=== PATIENT | male | born 2000 | race Caucasian/White ===

== ENCOUNTER 2022-11-19 17:40 | Inpatient (IN) | payer OTHER ==
[~2022-11-19] VITALS: Ht 172.7 cm; Wt 57.1 kg
[2022-11-19] VITALS (87 sets, daily range): BP systolic 121; BP diastolic 65; PULSE 77; TEMP 97.9; O2SAT 90–100
[2022-11-19 18:32] LABS: BASO # 0.1 K/mm3 (0.0-0.2); BASO % 0.5 % (0.0-2.0); EOS % 0.1 % (0.0-4.0); GRAN # 13.6 K/mm3 (1.4-6.5); GRAN % 87.4 % (42.2-75.2); HEMATOCRIT 42.6 % (42.0-52.0); HEMOGLOBIN 14.8 g/dl (13.5-18.0); LYMPH # 1.2 K/mm3 (1.2-3.4); MEAN CELL VOLUME 92 fl (80.0-100.0); MEAN CORPUSCULAR HEMOGLOBIN 32 pg (27-31); MEAN CORPUSCULAR HGB CONC 35 g/dl (33.0-37.0); MEAN PLATELET VOLUME 9.1 fl (7.4-10.4); MONO # 0.5 K/mm3 (0.1-0.6); MONO % 3.4 % (1.7-9.3); PLATELET COUNT 283 K/mm3 (130-400); RED BLOOD COUNT 4.63 M/mm3 (4.20-5.60); REDCELL DISTRIBUTION WIDTH-CV 11.9 % (11.5-14.5)
[2022-11-19 18:48] LABS: ALBUMIN 4.8 gm/dL (3.5-5.0); BILIRUBIN,TOTAL 0.6 mg/dL (0.2-1.2); C-REACTIVE PROTEIN 0.02 mg/dL (0.00-0.50); CALCIUM 9.2 mg/dL (8.4-10.2); CREATININE, serum 0.9 mg/dL (0.72-1.25); POTASSIUM 3.4 mmol/L (3.5-4.5); TOTAL PROTEIN 7.4 gm/dL (6.2-8.1)
[2022-11-19 19:29] LABS: COLLECTION METHOD CLEAN CATCH
[2022-11-19 19:41] LABS: URINE APPEARANCE Clear (CLEAR/HAZY); URINE COLOR Yellow (YELLOW)
[2022-11-19 19:42] LABS: SQUAMOUS EPITHELIAL None Seen /hpf (0-10); URINE BLOOD Negative (NEGATIVE); URINE GLUCOSE Negative (NEGATIVE); URINE KETONE 4+ (NEGATIVE); URINE NITRATE Negative (NEGATIVE); URINE PROTEIN(semi-quant) Negative (NEGATIVE); URINE RBC None Seen /hpf (0-2); URINE UROBILINOGEN 0.2 E.U/dL (0.2-1.0)
[2022-11-19 19:43] LABS: URINE BACTERIA None Seen /hpf (NONE SEEN)
[2022-11-19 19:45] LABS: TRICYCLIC ANTIDEPRESS URINE NEGATIVE
[2022-11-19 21:49] LABS: ACETONE,SERUM SMALL
[2022-11-19 21:58] LABS: ANION GAP 14 mmol/L (7-16); BLOOD UREA NITROGEN 12 mg/dL (9-21); CALCIUM 8.3 mg/dL (8.4-10.2); CHLORIDE 112 mmol/L (98-107); GLUCOSE 109 mg/dL (70-99); MAGNESIUM 1.6 mg/dL (1.6-2.6); PHOSPHOROUS 2.9 mg/dL (2.3-4.7); SODIUM 140 mmol/L (136-145)
--- NOTE | 2022-11-19 22:00 | NUR ---
PATIENT ARRIVED TO ICU VIA ED COT ACCOMPANIED BY RN. PATIENT NOT IN DISTRESS AND ABLE TO TRANSFER TO BED.
[2022-11-19 22:12] LABS: OSMOLALITY-SERUM 295 Osm/kg (275-300)
[2022-11-19 22:14] LABS: CARBON DIOXIDE 14 mmol/L (22-29); SALICYLATE < 5.0 mg/dL (15.0-30.0)
[2022-11-19] MEDS ORDERED: ASHWAGANDHA300 MG PO (22:22)
[2022-11-19] MEDS ORDERED: VITAMIN B12 781 TAB PO (22:35)
[2022-11-19] MEDS ORDERED: VITAMINC1000TA PO (22:36)
[2022-11-19] MEDS ORDERED: VITAMIN B-625 MG PO (22:36)
[2022-11-19] MEDS ORDERED: PROBIOTIC BLEN1 EACH PO (22:37)
[2022-11-19] MEDS ORDERED: OMEGA-3 1000 MG1 CAP PO (22:38)
[2022-11-19] MEDS ORDERED: THE MEDICINE SH1 POW PO (22:39)
[2022-11-19] MEDS ORDERED: LIONS MANE (22:39)
[2022-11-19] MEDS ORDERED: MELATONIN1 MG PO (22:40)
[2022-11-20] VITALS (790 sets, daily range): BP systolic 96–112; BP diastolic 54–89; PULSE 79–93; TEMP 97.9–98.5; O2SAT 94–100
--- NOTE | 2022-11-20 00:40 | NUR ---
PATIENT DOES NOT APPEAR TO BE IN ACUTE DISTRESS. RESPIRATORY EFFORT IS NORMAL AND PAIN IS MINIMAL. PATIENT STATED THAT HE HAS LOST 20 LBS SINCE JULY AND HAS CHANGED HIS DIET DUE TO GI UPSET. PATIENT ALSO MENTIONED THAT HE FREQUENTLY HAS BLOOD IN HIS STOOL, USES THC AND NICOTINE AND DRINKS A COUPLE TIMES A WEEK. LR INFUSING , MAGNESIUM DC'D DUE TO PAIN WITH INFUSION - DOCTOR'S ORDERS. BED IN LOW POSITION AND CALL LIGHT WITHIN REACH. PATIENT IN OBSERVABLE AREA.
[2022-11-20 01:46] LABS: CALCIUM 8.7 mg/dL (8.4-10.2); CREATININE, serum 0.79 mg/dL (0.72-1.25)
[2022-11-20 02:22] LABS: HIV 1/2 Antibodies Non-Reactive; HIV-1p24 Antigen Non-Reactive
[2022-11-20 04:45] LABS: BASO % 0.4 % (0.0-2.0); EOS # 0.1 K/mm3 (0.0-0.7); EOS % 0.8 % (0.0-4.0); GRAN # 4.6 K/mm3 (1.4-6.5); GRAN % 58.8 % (42.2-75.2); HEMATOCRIT 37.7 % (42.0-52.0); HEMOGLOBIN 13.2 g/dl (13.5-18.0); LYMPH # 2.3 K/mm3 (1.2-3.4); LYMPH % 29.4 % (20.0-51.0); MEAN CELL VOLUME 90 fl (80.0-100.0); MEAN CORPUSCULAR HEMOGLOBIN 31 pg (27-31); MEAN CORPUSCULAR HGB CONC 35 g/dl (33.0-37.0); MEAN PLATELET VOLUME 8.9 fl (7.4-10.4); MONO # 0.8 K/mm3 (0.1-0.6); MONO % 10.5 % (1.7-9.3); PLATELET COUNT 241 K/mm3 (130-400); RED BLOOD COUNT 4.21 M/mm3 (4.20-5.60); REDCELL DISTRIBUTION WIDTH-CV 11.9 % (11.5-14.5)
[2022-11-20 05:01] LABS: CALCIUM 9.2 mg/dL (8.4-10.2); CREATININE, serum 0.86 mg/dL (0.72-1.25); MAGNESIUM 2.1 mg/dL (1.6-2.6); PHOSPHOROUS 3.6 mg/dL (2.3-4.7); POTASSIUM 4.2 mmol/L (3.5-4.5)
--- NOTE | 2022-11-20 08:00 | NUR ---
PT RESTING IN BED WITH LIGHTS OFF AND EYES CLOSED. PT AWOKE TO SOUND OF DOOR, A&O X3, VSS, AND REPORTS PAIN 5/10 TO RFA BETWEEN WRIST AND ELBOW WITH NO VISIBLE CONCERN NOTED. ALL QUESTIONS ANSWERED AT THIS TIME AND CALL LIGHT REMAINS WITHIN REACH.
[2022-11-20 08:34] LABS: CALCIUM 8.7 mg/dL (8.4-10.2); CREATININE, serum 0.87 mg/dL (0.72-1.25); POTASSIUM 4.1 mmol/L (3.5-4.5)
--- NOTE | 2022-11-20 10:19 | NUR ---
IVF STOPPED AT THIS TIME AND MENU REVIEWED WITH EDUCATION OF ADVANCED DIET ORDERS. ALL QUESTIONS ANSWERED AT THIS TIME. PT DENIES ADDITIONAL NEEDS.
--- NOTE | 2022-11-20 11:08 | NUR ---
CUSTOMER SERVICE AGENT reviewed pt's clinical record and noted he was admitted last evening for generalized weakness. CUSTOMER SERVICE AGENT met with pt @ his bedside before rounds this morning. Pt was cooperative, oriented to person, time, place and situation. He reports he was lying on his couch and became very shaky, weak and cold, He reports he has never experience sxs like that before, prompting a visit to the ED. Pt reports he feels better this morning. 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 He is single, has no children and is originally from [place]. He stated his parents left their home in [place] at 3am this morning after he alerted them of his admission. Pt has no primary care provider, but states he has seen a nurse practitioner @ [facility]. When asked if he had a HCPOA, pt stated, "yes." He stated his parents are his HCPOA's. No other concerns noted. Pt most likely will be discharge later today. No SW needs were noted.
--- NOTE | 2022-11-20 11:12 | NUR ---
Initial visit: Human Resources Talent Manager stopped by room on rounds. Pt was resting and content sitting up in his bed. Pt has no needs right now. Human Resources Talent Manager will follow up as needed.
--- NOTE | 2022-11-20 12:00 | NUR ---
PARENTS ARRIVED AND REMAIN AT BEDSIDE. ALL QUESTIONS ANSWERED. VSS, CALL LIGHT WITHIN REACH, NO ADDITIONAL NEEDS VOICED AT THIS TIME.
--- NOTE | 2022-11-20 14:12 | NUR ---
REPORT GIVEN TO CARLOTA GAUTHIER ON MEDICAL FLOOR. ALL QUESTIONS ANSWERED. PT TRANSFERED VIA WC WITH PARENTS AT HIS SIDE TO ROOM 315. DISHA IN ROOM, CALL LIGHT WITHIN REACH, AND NO ADDITIONAL NEEDS VOICED AT THIS TIME.
--- NOTE | 2022-11-20 14:29 | NUR ---
Pt arrived to room 315 via w/c as an ICU transfer. Diagnosis metabolic acidosis. Assessment complete. Reports discomfort to IV site- no s/s IV related complications- and a sore throat. Just received Tylenol po from ICU nurse prior to transfer. Patient's parents at bedside.
--- NOTE | 2022-11-20 20:21 | NUR ---
Dr. Mendoza in this evening for consult. Patient given sitz bath, per MD order. Sitz bath set up in the bathroom and patient instructed on use-verbalizes understanding. Lidocaine gel at bedside for use after sitz bath.
--- NOTE | 2022-11-20 21:26 | NUR ---
patient ambulating in room, alert and oriented x4. RF IV is patent, clean dry and intact. pt using sitz bath as educated. pt denies chest pain and shortness of breath and has no further needs, questions, or concerns at this time. call light within reach, will continue to monitor.
[2022-11-21 03:30] VITALS: BP 96/57; PULSE 67; TEMP 98.3
[2022-11-21 07:26] VITALS: BP 105/63; PULSE 69; TEMP 97.9
[2022-11-21 07:27] LABS: BASO % 0.8 % (0.0-2.0); EOS # 0.1 K/mm3 (0.0-0.7); EOS % 2.6 % (0.0-4.0); GRAN # 2.1 K/mm3 (1.4-6.5); HEMATOCRIT 38.5 % (42.0-52.0); LYMPH # 2.2 K/mm3 (1.2-3.4); LYMPH % 44.8 % (20.0-51.0); MEAN CELL VOLUME 91 fl (80.0-100.0); MEAN CORPUSCULAR HEMOGLOBIN 31 pg (27-31); MEAN CORPUSCULAR HGB CONC 34 g/dl (33.0-37.0); MONO # 0.5 K/mm3 (0.1-0.6); MONO % 9.6 % (1.7-9.3); PLATELET COUNT 226 K/mm3 (130-400); RED BLOOD COUNT 4.22 M/mm3 (4.20-5.60); REDCELL DISTRIBUTION WIDTH-CV 12.2 % (11.5-14.5)
--- NOTE | 2022-11-21 07:45 | NUR ---
Assessment complete. Reports mild discomfort to rectal/hemorrhoid area but feels the lidocaine gel and sitz bath were effective.
[2022-11-21 08:13] LABS: CALCIUM 9.6 mg/dL (8.4-10.2); CREATININE, serum 0.93 mg/dL (0.72-1.25)
[2022-11-21] MEDS ORDERED: LEADER CLE17 GM/Dose PO (08:50)
--- NOTE | 2022-11-21 10:10 | NUR ---
Discharge instructions reveiwed with patient- verbalizes understanding. INT d/c'd with cath tip intact. Pt escorted to private vehicle and discharged home with family.
== END 2022-11-21 10:15 | disposition home or self-care (01) | DRG 641 ==
LOC: COL.ER 17:40 → ICU 20:22 → MEDICAL 20:22
PROVIDERS: Nurse Practitioner Primary Care; Physician Assistant; ADMIT Internal Medicine
DX: E87.29 Other acidosis (principal); K92.1 Melena; T68.XXXA Hypothermia, initial encounter; E87.6 Hypokalemia; K62.89 Other specified diseases of anus and rectum; R10.13 Epigastric pain; K64.8 Other hemorrhoids
CPT/HCPCS: J1650; J1885; J2405; J3411; J3475; J7030; J7042; J7120; J7121; Q9967

== ENCOUNTER 2022-11-24 05:57 | Day surgery (SDC) | payer OTHER ==
[~2022-11-24] VITALS: Ht 172.7 cm; Wt 60.1 kg
[~2022-11-24 05:57] MED LIST: ASHWAGANDHA300 MG PO; LEADER CLE17 GM/Dose PO; LIONS MANE; MELATONIN1 MG PO; OMEGA-3 1000 MG1 CAP PO; PROBIOTIC BLEN1 EACH PO; THE MEDICINE SH1 POW PO; VITAMIN B-625 MG PO; VITAMIN B12 781 TAB PO; VITAMINC1000TA PO
[2022-11-24 06:43] VITALS: BP 106/75; PULSE 75; TEMP 97.7
[2022-11-24 08:55] VITALS: BP 112/64; PULSE 77; TEMP 97.3
--- NOTE | 2022-11-24 08:55 | NUR ---
The patient arrived back to [facility] from the endoscopy suite at this time. The patient ambulated from the cart to the recliner in his room with the stand by assistance of two nurses and appeared to tolerate the activity well. Post procedure vital signs were started at this time. Call light is within reach. Warm blanket provided. Father at bedside. Denies any further needs at this time. Lab has been called to come draw blood for the labs ordered and pharmacy was called to bring up the PRN cream to the patient as ordered.
[2022-11-24 09:10] VITALS: BP 95/69; PULSE 72
--- NOTE | 2022-11-24 09:10 | NUR ---
Dr. Mendoza is at the patient's bedside speaking with him and his father regarding the findings of the procuedures. Lab is also at the patient's bedside. The patient was given some water as requested.
[2022-11-24 09:25] VITALS: BP 97/34; PULSE 70
--- NOTE | 2022-11-24 09:25 | NUR ---
Dishcarge instructions were reviewed with the patient and his father at this time. They both verbalized understanding and have no questions for the nurse at this time. The patient has used the hemorrhoid cream that pharmacy brought up to help with his anorectal pain. The patient's IV to his right anecubital was removed and a pressure dressing was applied to the site. The nurse instructed the patient to get dressed and notify the staff when he is ready to be escorted out.
--- NOTE | 2022-11-24 09:37 | NUR ---
The patient was escorted out via wheelchair to a private vehicle by CARLOTA Lnidsay. The patient's belongings and discharge paperwork were sent with him. The patien's father is present to drive him home.
== END 2022-11-24 09:37 | disposition home or self-care (01) ==
LOC: SDCO 05:57
DX: K25.4 Chronic or unspecified gastric ulcer with hemorrhage (principal); R63.4 Abnormal weight loss; K62.89 Other specified diseases of anus and rectum; K92.1 Melena; K64.2 Third degree hemorrhoids; K60.0 Acute anal fissure; F17.210 Nicotine dependence, cigarettes, uncomplicated; F17.290 Nicotine dependence, other tobacco product, uncomplicated
CPT/HCPCS: J2704; J7120